=== PATIENT | female | born 1960 | race Caucasian/White ===

== ENCOUNTER 2018-08-28 17:36 | Emergency (ER) | payer MEDICARE, OTHER ==
[~2018-08-28] VITALS: Ht 162.6 cm; Wt 91.0 kg
[~2018-08-28 17:36] MED LIST: ABILIFY MAINTE300 M1 IM; ABILIFY MAINTE400 M1 IM; ACETAMINOPHEN325 M1 PO; ACETAZOLAMIDE250 MG PO; ADULT LOW DOSE81 MG PO; ADVAIR 100-501 EACH INH; ALBUTEROL SULF8.5 GM INH; ARIPIPRAZOLE10 MG PO; ASPIRIN EC325 MG PO; ATIVAN2 MG PO; BENZTROPINE MESY1 MG PO; BISOPROLOL FUMAR5 MG PO; BUPROPION HCL100 M1 PO; BUSPIRONE HCL15 MG PO; CARVEDILOL3.125 MG PO; CLONAZEPAM1 MG PO; CLOPIDOGREL75 MG PO; CYMBALTA60 MG PO; FAMOTIDINE20 MG PO; FLUOXETINE HCL20 MG PO; GLUCOPHAGE500 MG PO; IBUPROFEN200 MG PO; KLONOPIN1 MG PO; LATUDA80 MG PO; LISINOPRIL2.5 MG PO; LORAZEPAM2 MG PO; NAPROXEN500 MG PO; NICORETTE2 MG MM; NICOTINE PATCH1 EAC1 TD; PERCOCET 5-3251 EACH PO; PRAVASTATIN SOD10 MG PO; PREDNISONE20 MG PO; PROAIR HFA8.5 GM INH; PROZAC20 MG PO; PROZAC40 MG PO; RISPERDAL2 MG PO; ROBAXIN500 MG PO; SAPHRIS5 MG SL; SEROQUEL XR400 MG PO; SEROQUEL100 MG PO; SEROQUEL300 MG PO; TORSEMIDE20 MG PO; TRAMADOL HCL50 MG PO; TUSSIN DM CLEA PO; ULTRAM50 MG PO; VICKS BABYRUB S50 GM TOP; VICKS VAPORUB O50 GM TOP; ZITHROMAX250 MG PO
--- OUTSIDE RECORDS SUMMARY | 2018-08-28 17:38 | XMS ---
PreManage Notification: NITISH CAICEDO Security Statement Services Representative Events No recent Security Events currently on file CRITERIA MET - Group Notification CARE PROVIDERS JO ANN SETHI Primary Care 11/15/2015-Current PHONE: [phone] KITTY Currie Primary [facility] Current PHONE: [phone] HARVEY CORTEZ Primary Care 11/11/2014-Current PHONE: Unknown Arvind Belle MD Current PHONE: Unknown Janny has no Care Guidelines for this patient. Sarah Beth VISIT COUNT ([address] [facility] [place] 2 [facility] TOTAL 3 NOTE: Visits indicate total known visits. ED/UCC VISIT TRACKING (12 MO.) 08/28/2018 17:36 [facility] [place] TYPE: Emergency COMPLAINT: - MEDICAL CLEARANCE 01/28/2018 11:45 [facility] [place] TYPE: Emergency DIAGNOSES: - Disorganized schizophrenia - Psychiatric Evaluation - Mental Health Check 01/26/2018 02:10 [facility] [place] TYPE: Emergency COMPLAINT: - MEDICAL CLEARANCE DIAGNOSES: - Major depressive disorder, single episode, unspecified - Schizophrenia, unspecified - Allergy status to other drugs, medicaments and biological substances status - Chronic obstructive pulmonary disease, unspecified - Unspecified psychosis not due to a substance or known physiological condition - Other senior living (current) drug therapy - intermediate 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 [place] TYPE: Psychiatry DIAGNOSES: - Schizoaffective disorder, bipolar type - SUICIDIAL [email or web address]
== END 2018-08-28 19:34 | disposition home or self-care (01) ==
LOC: ED 17:36
DX: F32.9 Major depressive disorder, single episode, unspecified (principal); J44.9 Chronic obstructive pulmonary disease, unspecified; E78.5 Hyperlipidemia, unspecified; I21.4 Non-ST elevation (NSTEMI) myocardial infarction; F20.9 Schizophrenia, unspecified; F31.9 Bipolar disorder, unspecified; Z87.891 Personal history of nicotine dependence; Z88.8 Allergy status to other drugs, medicaments and biological substances; Z79.899 Other long term (current) drug therapy
CPT/HCPCS: 99283

== ENCOUNTER → 2022-10-18 | Emergency (ER) | payer MEDICARE, OTHER ==
[~2022-10-18] VITALS: Ht 162.6 cm; Wt 93.9 kg
[~2022-10-18] MED LIST changes: +AZITHROMYCIN500 MG PO
--- OUTSIDE RECORDS SUMMARY | ~2022-10-18 | XMS | Continuity of Care Document ---
Demographics + + + | Address | [address] | | | [place] [address] | + + + | Preferred Language | Unknown | + + + | Marital Status | Never | + + + | Hoahaoism Affiliation | Unknown | + + + | Race | White | + + + | Ethnic Group | Not or | + + + Author + + + | Author | [facility] | + + + | Organization | [facility] | + + + | Address | [address] | | | [place] [address] | + + + | Phone | | + + + Care Team Providers + + + + | Care Group Art Supervisor Name | Role | Phone | + + + + Unavailable | Unavailable | + + + + Unavailable | Unavailable | + + + + Allergies and Intolerances + + + + + | date | description | facility | type | + + + + + | (no date) | aripiprazole | [facility] | (unknown) | | | | Hospital | | + + + + + Encounters No information. Functional Status No information. Immunizations No information. Medications + + + + | date | description | facility | + + + + | 2021-11-15 00:00 | RISPERIDONE | [facility] | + + + + | 2021-11-15 00:00 | FLUOXETINE HCL | [facility] | + + + + | 2013-12-21 00:00 | OXYCODONE | [facility] | | | HCL/ACETAMINOPHEN | | + + + + | 2015-01-21 00:00 | ALBUTEROL SULFATE | [facility] | + + + + | 2021-11-15 00:00 | ALBUTEROL SULFATE | [facility] | + + + + | 2021-11-15 00:00 | QUETIAPINE FUMARATE | [facility] | + + + + | 2021-11-15 00:00 | ARIPIPRAZOLE | [facility] | + + + + | 2015-06-15 00:00 | ACETAZOLAMIDE | [facility] | + + + + | 2021-11-15 00:00 | CLONAZEPAM | [facility] | + + + + | 2013-11-02 00:00 | NAPROXEN | [facility] | + + + + | 2015-06-15 00:00 | NICOTINE 21MG | [facility] | + + + + | 2015-06-15 00:00 | TORSEMIDE | [facility] | + + + + | 2021-11-15 00:00 | CLONAZEPAM | [facility] | + + + + | 2021-11-15 00:00 | LORAZEPAM | [facility] | + + + + | 2013-12-21 00:00 | METHOCARBAMOL | [facility] | + + + + | 2015-06-15 00:00 | NICOTINE POLACRILEX | [facility] | + + + + | 2021-11-15 00:00 | FLUOXETINE HCL | [facility] | + + + + | 2021-11-15 00:00 | QUETIAPINE FUMARATE | [facility] | + + + + | 2015-06-15 00:00 | ASPIRIN | [facility] | + + + + | 2021-11-15 00:00 | CLOPIDOGREL BISULFATE | [facility] | + + + + | 2021-11-15 00:00 | FAMOTIDINE | [facility] | + + + + | 2021-11-15 00:00 | FLUOXETINE HCL | [facility] | + + + + | 2021-11-15 00:00 | LISINOPRIL | [facility] | + + + + | 2015-01-21 00:00 | predniSONE | [facility] | + + + + | 2021-11-15 00:00 | ARIPIPRAZOLE | [facility] | + + + + | 2021-11-15 00:00 | ASPIRIN | [facility] | + + + + | 2021-11-15 00:00 | CARVEDILOL | [facility] | + + + + | 2021-11-15 00:00 | QUETIAPINE FUMARATE | [facility] | + + + + | 2021-11-15 00:00 | ALBUTEROL SULFATE | [facility] | + + + + | 2021-11-12 00:00 | AZITHROMYCIN | [facility] | + + + + | 2013-11-02 00:00 | TRAMADOL HCL | [facility] | + + + + | 2013-10-04 00:00 | TRAMADOL HCL | [facility] | + + + + | 2021-11-15 00:00 | BISOPROLOL FUMARATE | [facility] | + + + + | 2021-11-15 00:00 | ASENAPINE MALEATE | [facility] | + + + + | 2021-11-15 00:00 | metFORMIN HCL | [facility] | + + + + | 2021-11-15 00:00 | BUSPIRONE HCL | [facility] | + + + + | 2021-11-15 00:00 | BENZTROPINE MESYLATE | [facility] | + + + + | 2021-11-15 00:00 | FLUTICASONE/SALMETEROL | [facility] | + + + + | 2021-11-15 00:00 | PRAVASTATIN SODIUM | [facility] | + + + + | 2021-11-15 00:00 | BUPROPION HCL | [facility] | + + + + Problems + + + + | date | description | facility | + + + + | 2013-12-21 00:00 | Osteoarthritis of spine | [facility] | + + + + | 2013-12-21 00:00 | Spasm of back muscles | [facility] | + + + + | 2014-04-16 00:00 | Schizophrenia | [facility] | + + + + | 2014-04-16 00:00 | Pulmonary emphysema | [facility] | + + + + | 2014-07-19 00:00 | Obstructive chronic | [facility] | | | bronchitis with | | | | exacerbation | | + + + + | 2015-03-05 00:00 | Auditory hallucinations | [facility] | + + + + | 2015-03-17 00:00 | Patient left without being | [facility] | | | seen | | + + + + | 2015-03-21 00:00 | Psychosis | [facility] | + + + + | 2015-06-12 00:00 | Schizoaffective disorder, | [facility] | | | bipolar type | | + + + + | 2015-06-12 00:00 | Acute respiratory failure | [facility] | | | with hypoxia | | + + + + | 2015-06-13 00:00 | Acute on chronic diastolic | [facility] | | | heart failure | | + + + + | 2015-07-13 00:00 | Non-ST elevation (NSTEMI) | [facility] | | | myocardial infarction | | + + + + | 2016-06-25 00:00 | Schizophrenia | [facility] | + + + + | 2016-06-25 00:00 | Chronic obstructive | [facility] | | | pulmonary disease | | + + + + | 2016-06-25 00:00 | Encounter for medical | [facility] | | | clearance for patient hold | | + + + + | 2016-06-25 00:00 | Noncompliance | [facility] | + + + + | 2018-08-28 00:00 | Depression | [facility] | + + + + | 2021-11-12 00:00 | Acute exacerbation of | [facility] | | | chronic obstructive | | | | pulmonary disease | | + + + + Procedures No information. Results/Labs No information. Social History No information. Vital Signs + + + +---------+ | date | measurement | value | units | + + + +---------+ | 2021-11-12 00:00 | BMI | 35.6 | kg/m2 | + + + +---------+ | 2021-11-12 00:00 | BP_diastolic | 59 | mmHg | + + + +---------+ | 2021-11-12 00:00 | BP_systolic | 114 | mmHg | + + + +---------+ | 2021-11-12 00:00 | heart_rate | 81 | /min | + + + +---------+ | 2021-11-12 00:00 | height_metric | 162.56 | cm | + + + +---------+ | 2021-11-12 00:00 | height_standard | 64 | in | + + + +---------+ | 2021-11-12 00:00 | o2_saturation | 96 | % | + + + +---------+ | 2021-11-12 00:00 | respiration_rate | 15 | /min | + + + +---------+ | 2021-11-12 00:00 | temperature_metric | 36.5 | C | | | | | | + + + +---------+ | 2021-11-12 00:00 | | 97.7 | F | | | temperature_standar | | | | | d | | | + + + +---------+ | 2021-11-12 00:00 | weight_metric | 94.15 | kg | + + + +---------+ | 2021-11-12 00:00 | weight_standard | 207.56 | lb | + + + +---------+ | 2021-11-12 00:00 | weight_standard | 207.57 | lb | + + + +---------+"
--- OUTSIDE RECORDS SUMMARY | ~2022-10-18 | XMS | Continuity of Care Document ---
Demographics + + + | Address | [address] | | | [place] [address] | + + + | Preferred Language | Unknown | + + + | Marital Status | Never | + + + | Mormonism Affiliation | Unknown | + + + | Race | White | + + + | Ethnic Group | Not or | + + + Author + + + | Author | [facility] | + + + | Organization | [facility] | + + + | Address | [address] | | | [place] [address] | + + + | Phone | | + + + Care Team Providers + + + + | Care Entertainment Production Professional Name | Role | Phone | + + + + Unavailable | Unavailable | + + + + Unavailable | Unavailable | + + + + Allergies and Intolerances + + + + + | date | description | facility | type | + + + + + | (no date) | aripiprazole | [facility] | (unknown) | | | | Hospital | | + + + + + Encounters No information. Functional Status No information. Immunizations No information. Medications + + + + | date | description | facility | + + + + | 2021-11-15 00:00 | RISPERIDONE | [facility] | + + + + | 2021-11-15 00:00 | FLUOXETINE HCL | [facility] | + + + + | 2013-12-21 00:00 | OXYCODONE | [facility] | | | HCL/ACETAMINOPHEN | | + + + + | 2015-01-21 00:00 | ALBUTEROL SULFATE | [facility] | + + + + | 2021-11-15 00:00 | ALBUTEROL SULFATE | [facility] | + + + + | 2021-11-15 00:00 | QUETIAPINE FUMARATE | [facility] | + + + + | 2021-11-15 00:00 | ARIPIPRAZOLE | [facility] | + + + + | 2015-06-15 00:00 | ACETAZOLAMIDE | [facility] | + + + + | 2021-11-15 00:00 | CLONAZEPAM | [facility] | + + + + | 2013-11-02 00:00 | NAPROXEN | [facility] | + + + + | 2015-06-15 00:00 | NICOTINE 21MG | [facility] | + + + + | 2015-06-15 00:00 | TORSEMIDE | [facility] | + + + + | 2021-11-15 00:00 | CLONAZEPAM | [facility] | + + + + | 2021-11-15 00:00 | LORAZEPAM | [facility] | + + + + | 2013-12-21 00:00 | METHOCARBAMOL | [facility] | + + + + | 2015-06-15 00:00 | NICOTINE POLACRILEX | [facility] | + + + + | 2021-11-15 00:00 | FLUOXETINE HCL | [facility] | + + + + | 2021-11-15 00:00 | QUETIAPINE FUMARATE | [facility] | + + + + | 2015-06-15 00:00 | ASPIRIN | [facility] | + + + + | 2021-11-15 00:00 | CLOPIDOGREL BISULFATE | [facility] | + + + + | 2021-11-15 00:00 | FAMOTIDINE | [facility] | + + + + | 2021-11-15 00:00 | FLUOXETINE HCL | [facility] | + + + + | 2021-11-15 00:00 | LISINOPRIL | [facility] | + + + + | 2015-01-21 00:00 | predniSONE | [facility] | + + + + | 2021-11-15 00:00 | ARIPIPRAZOLE | [facility] | + + + + | 2021-11-15 00:00 | ASPIRIN | [facility] | + + + + | 2021-11-15 00:00 | CARVEDILOL | [facility] | + + + + | 2021-11-15 00:00 | QUETIAPINE FUMARATE | [facility] | + + + + | 2021-11-15 00:00 | ALBUTEROL SULFATE | [facility] | + + + + | 2021-11-12 00:00 | AZITHROMYCIN | [facility] | + + + + | 2013-11-02 00:00 | TRAMADOL HCL | [facility] | + + + + | 2013-10-04 00:00 | TRAMADOL HCL | [facility] | + + + + | 2021-11-15 00:00 | BISOPROLOL FUMARATE | [facility] | + + + + | 2021-11-15 00:00 | ASENAPINE MALEATE | [facility] | + + + + | 2021-11-15 00:00 | metFORMIN HCL | [facility] | + + + + | 2021-11-15 00:00 | BUSPIRONE HCL | [facility] | + + + + | 2021-11-15 00:00 | BENZTROPINE MESYLATE | [facility] | + + + + | 2021-11-15 00:00 | FLUTICASONE/SALMETEROL | [facility] | + + + + | 2021-11-15 00:00 | PRAVASTATIN SODIUM | [facility] | + + + + | 2021-11-15 00:00 | BUPROPION HCL | [facility] | + + + + Problems + + + + | date | description | facility | + + + + | 2013-12-21 00:00 | Osteoarthritis of spine | [facility] | + + + + | 2013-12-21 00:00 | Spasm of back muscles | [facility] | + + + + | 2014-04-16 00:00 | Schizophrenia | [facility] | + + + + | 2014-04-16 00:00 | Pulmonary emphysema | [facility] | + + + + | 2014-07-19 00:00 | Obstructive chronic | [facility] | | | bronchitis with | | | | exacerbation | | + + + + | 2015-03-05 00:00 | Auditory hallucinations | [facility] | + + + + | 2015-03-17 00:00 | Patient left without being | [facility] | | | seen | | + + + + | 2015-03-21 00:00 | Psychosis | [facility] | + + + + | 2015-06-12 00:00 | Schizoaffective disorder, | [facility] | | | bipolar type | | + + + + | 2015-06-12 00:00 | Acute respiratory failure | [facility] | | | with hypoxia | | + + + + | 2015-06-13 00:00 | Acute on chronic diastolic | [facility] | | | heart failure | | + + + + | 2015-07-13 00:00 | Non-ST elevation (NSTEMI) | [facility] | | | myocardial infarction | | + + + + | 2016-06-25 00:00 | Schizophrenia | [facility] | + + + + | 2016-06-25 00:00 | Chronic obstructive | [facility] | | | pulmonary disease | | + + + + | 2016-06-25 00:00 | Encounter for medical | [facility] | | | clearance for patient hold | | + + + + | 2016-06-25 00:00 | Noncompliance | [facility] | + + + + | 2018-08-28 00:00 | Depression | [facility] | + + + + | 2021-11-12 00:00 | Acute exacerbation of | [facility] | | | chronic obstructive | [...]
--- OUTSIDE RECORDS SUMMARY | 2022-10-18 10:26 | XMS ---
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 If patient is seen in the ED during business hours. Please contact [facility]Ws at [facility]. Care Recommendation: This patient has had 5 or more Emergency Department visits in the last 12 months.\T\nbsp; Patient requires education on the scope and purpose of the ED as an acute care provider not a Primary Care Provider and should not be utilized for chronic conditions.\T\nbsp; These are guidelines and the provider should exercise clinical judgment when providing care. E.D. VISIT COUNT (12 MO.) 2 [facility]. TOTAL 2 NOTE: Visits indicate total known visits. ED/UCC VISIT TRACKING (12 MO.) 10/18/2022 10:18 [facility] [place] TYPE: Emergency COMPLAINT: - MEDICAL CLEARANCE 11/12/2021 19:03 [facility] [place] TYPE: Emergency COMPLAINT: - DIFFICULTY BREATHING DIAGNOSES: - Chronic obstructive pulmonary disease with (acute) exacerbation - senior care (current) use of oral hypoglycemic drugs - Other half-way (current) drug therapy - Personal history of nicotine dependence - Shortness of breath INPATIENT VISIT TRACKING (12 MO.) No inpatient visits to display in this time frame [id number]
[2022-10-24 13:18] VITALS: BP 125/77
== END ==
LOC: ED 10:18
DX: F20.9 Schizophrenia, unspecified (principal); J44.9 Chronic obstructive pulmonary disease, unspecified; E78.5 Hyperlipidemia, unspecified; Z88.8 Allergy status to other drugs, medicaments and biological substances; Z79.899 Other long term (current) drug therapy; Z87.891 Personal history of nicotine dependence
CPT/HCPCS: 36415; 80053; 81001; 84443; 85025; A9270; A9270-GY; C9803; G0480; J1630; U0002